=== PATIENT | female | born 1950 | race Caucasian/White ===

== ENCOUNTER → 2020-06-16 08:09 | Outpatient (CLI) | payer MEDICARE, BC ==
--- NOTE | ~2020-06-16 | ST ---
PATIENT:NIKOLE MCCARTHY MEDICAL RECORD: [id number] SEX: F LOCATION:[facility] ORDER #: ADMISSION DATE: 06/16/20 AGE OF PATIENT: 69 REFERRING PHYSICIAN: INTERPRETING PHYSICIAN: BRADEN BEASLEY MD DATE OF SERVICE: 06/16/2020 NUCLEAR STRESS TEST GATED: Normal. Normal wall motion. Normal EF, calculated EF 70%. SPECT IMAGING: SPECT imaging was performed. 1. Short axis view shows uptake along the anterior wall, lateral wall and inferior wall. 2. Horizontal axis: Horizontal axis confirms good uptake along the anterior wall and inferior wall. 3. Vertical axis: Vertical axis shows good uptake along the lateral wall and septum. FINAL IMPRESSION: 1. Gated, normal wall motion, normal ejection fraction 70%. 2. Normal SPECT imaging. FINAL RECOMMENDATIONS: This patient with known history of coronary artery disease, this scan is low risk for any ongoing ischemia. LV function remains normal. Continue medical management. Risk factor modification is recommended. TRANSINT:[id number] Voice Confirmation ID: [id number] DOCUMENT ID: [id number] BRADEN BEASLEY MD CC: [id number] DICTATION DATE: 06/17/20 1008 SEISMOGRAPH OBSERVER: 06/18/20 0635 DEP CLI 06/16/[address] [address]
== END | disposition home or self-care (01) ==
LOC: D.HCCARDIO 08:09
PROVIDERS: ATTEND Internal Medicine Interventional Cardiology
DX: I20.9 Angina pectoris, unspecified (principal)

== ENCOUNTER 2020-07-19 11:03 | Day surgery (SDC) | payer MEDICARE, BC ==
[~2020-07-19] VITALS: Ht 160 cm; Wt 67.4 kg
--- NOTE | ~2020-07-19 | HEMODYNAMI ---
PATIENT:NIKOLE MCCARTHY MEDICAL RECORD: [id number] : 52 LOCATION:[facility] ADMISSION DATE: 07/19/20 Generatedon:113:37 Patient name: NIKOLE MCCARTHY Patient #: [id number] SSN: [id number] : 1950 Date of study: 07/19/2020 Page: Of Hemodynamic Procedure Report Patient Data Patient Demographics Procedure consent was obtained First Name: NIKOLE Gender: Female Last Name: FABIO : 1950 Patient #: [id number] Age: 69 year(s) Race: SSN: [id number] Additional ID: [id number] Contact details Address: [address] [place] [address] State: [place] City: [place] Zip code: [address] Admission Admission Data Admission Date: 07/19/2020 Admission Time: 11:03 Arrival Date: 07/19/2020 Arrival Time: 13:00 Admit Source: Other Insurance Payor: Medicare [facility] #: [id number] Height (in.): 62.99 BSA: 1.7 (m2) Height (cm.): 160 BMI: 26.17 (kg/m2) Weight (lbs.): 147.71 Weight (kg.): 67 Procedure Procedure Types Cath Procedure Diagnostic Procedure PPM/ICD PPM Dual Implant Procedure Description Procedure Date Procedure Date: 07/19/2020 Procedure Start Time: 13:34 Procedure Staff Name Function Oc Gaming MD Performing Physician Tj Duong MD Assisting physician Erin Richardson RT Monitor Karina Sandoval RT Scrub Gianni Grande RN Nurse Earl Garcia RN Nurse Procedure Data Cath Procedure Fluoroscopy Diagnostic fluoroscopy Total fluoroscopy Time: 1.5 time: 1.5 min min Diagnostic fluoroscopy Total fluoroscopy dose: dose: 40.64 mGy 40.64 mGy Estimated blood loss: 5 ml Procedure Complications No complications Procedure Medications Medication Administration Route Dosage 0.9% NaCl I.V. 25 ml/hr Oxygen etCO2 Nasal cannula 2 l/min Ancef (1Gm/50ml NS) I.V.P.B 1 g Ancef Irrigation Topical 1 g (1gm/500ml NS) Refer to Anesthesia Notes for Sedation Medications Oxygen 8 l/min Hemodynamics Rest BSA: 1.7 (m2) O2 Consumption: Estimated: 141.29 (ml/min) O2 Consumption indexed: Estimated:83.11 (ml/min/m) Heart Rate: 45 (bpm) Snapshots Pre Cath Intra NCS Post Cath Vital Signs Time Heart Resp SPO2 etCO2 NIBP (mmHg) Rhythm Pain Sedation Rate (ipm) (%) (mmHg) Status Level (bpm) 12:41:47 44 21 97 185/108(154) SB 0 (11) 10(A) , No pain 12:46:09 44 38 96 183/106(152) SB 0 (11) 10(A) , No pain 12:50:33 46 17 98 183/91(153) SB 0 (11) 10(A) , No pain 12:54:53 45 18 99 29.7 188/123(154) SB 0 (11) 10(A) , No pain 13:00:19 45 11 99 29.6 194/100(159) SB 0 (11) 10(A) , No pain 13:04:51 46 13 100 28.1 199/74(167) SB 0 (11) 10(A) , No pain 13:07:27 43 18 98 0 174/70(141) SB 0 (11) 10(A) , No pain 13:09:53 46 24 96 20 160/71(137) SB 0 (11) 9(A) , No pain 13:12:12 49 8 91 33.4 157/74(124) SB 0 (11) 9(A) , No pain 13:14:33 51 9 92 0 148/65(118) SB 0 (11) 9(A) , No pain 13:16:50 70 8 94 32.6 133/60(109) Paced 0 (11) 9(A) , No pain 13:19:01 45 26 94 0 129/64(103) SB 0 (11) 9(A) , No pain 13:21:08 79 8 98 31.9 120/76(104) Paced 0 (11) 9(A) , No pain 13:24:09 80 8 98 35.6 114/63(95) Paced 0 (11) 9(A) , No pain 13:26:16 59 8 98 37.1 107/59(87) Paced 0 (11) 9(A) , No pain 13:28:20 70 8 98 36.4 104/61(88) Paced 0 (11) 9(A) , No pain 13:30:23 70 7 98 35.6 104/60(86) Paced 0 (11) 9(A) , No pain 13:32:26 72 6 98 31.9 107/58(80) Paced 0 (11) 9(A) , No pain Medications Time Medication Route Dose Verified Delivered Reason Notes Effec tiveness by by 12:21:47 0.9% NaCl I.V. 25 Oc Earl used for ml/hr St Deuce Garcia RN procedure 12:22:01 Oxygen etCO2 2 Oc Earl used for Nasal l/min St Deuce Garcia RN procedure cannula 12:42:05 Ancef I.V.P.B 1 g Oc Earl used for (1Gm/50ml St Deuce Garcia RN procedure NS) 12:42:21 Ancef Topical 1 g Oc Christopherian used for Irrigation St Deuce Duong MD procedure (1gm/500ml NS) 13:03:54 Refer to Oc Spencer Anesthesia St Deuce Duong MD Notes for MD Sedation Medications 13:05:22 Oxygen NC- 8 Oc Christopherian used for requested simple l/min St Deuce Duong MD procedure per mask anesthesia Procedure Log Time Note 12:01:23 Diagnostic Cath Status : Elective 12:02:04 Informed consent obtained and on chart 12:04:26 Arrival Date: 07/19/2020 1:00:00 PM 12:04:56 Admit Source: Other 12:04:59 Insurance Payor : Medicare 12:06:29 Patient Height : 62.99 inches 12:06:31 Patient Weight : 147.71 lbs 12:06:43 Procedure Status PPM/ Gen Change/ Lead Revision/ Temp. 12:06:46 Time tracking: Regular hours (M-F 7:00 - 5:00) 12:07:06 Plan of Care:Hemodynamics will remain stable., Cardiac rhythm will remain stable., Comfort level will be maintained., Respiratory function will remain adequate., Patient/ family verbilizes understanding of procedure., Procedure tolerated without complication., Recovers from procedure without complications.. 12:21:47 0.9% NaCl 25 ml/hr I.V. was administered by Earl Garcia RN; used for procedure; Verbal order read back and verified. 12:22:01 Oxygen 2 l/min etCO2 Nasal cannula was administered by Earl Garcia RN; used for procedure; Verbal order read back and verified. 12:22:40 Gianni Grande RN sent for patient. Start room use. 12:32:51 Patient received from Pre/Post Procedure Room to CCL 3 Alert and oriented. Tansferred to table in Supine position. 12:32:53 Warm blankets applied, and reinaldo hugger turned on for patient comfort. 12:32:53 Correct patient and procedure confirmed by team. 12:32:54 ECG and BP/O2 sat monitors applied to patient. 12:39:26 Vital chart was started 12:40:02 Baseline sample Acquired. 12:40:11 Rhythm: sinus bradycardia 12:40:13 Full Disclosure recording started 12:40:17 H&P Date Dictated: 07/19/2020 Within 30 days and on chart., H&P Addendum completed by physician on day of procedure. (MUST COMPLETE FOR ALL OUTPATIENTS). 12:41:15 Pre-procedure instructions explained to patient. 12:41:16 Pre-op teaching completed and patient verbalized understanding. 12:41:45 Family in patients room. 12:41:47 Patient NPO since Midnight. 12:41:53 Is the patient allergic to Iodine/contrast media? No. 12:41:56 Was the patient premedicated? No 12:41:58 Is patient on blood thinner?No 12:41:59 Patient diabetic? Yes. 12:42:00 If diabetic: On Metformin? No 12:42:03 Previous problem with sedation/anesthesia? No ? 12:42:05 Ancef (1Gm/50ml NS) 1 g I.V.P.B was administered by Earl Garcia RN; used for procedure; Verbal order read back and verified. 12:42:07 Snore? Yes 12:42:08 Sleep apnea? No 12:42:09 Deviated septum? No 12:42:10 Opens mouth fully? Yes 12:42:11 Sticks out tongue? Yes 12:42:18 Airway obstruction? No ? 12:42:21 Ancef Irrigation (1gm/500ml NS) 1 g Topical was administered by Tj Duong MD; used for procedure; Verbal order read back and verified. 12:42:21 Dentures? No ? 12:42:29 Pre procedure: right dorsailis pedis pulse 2+ Normal; easily identifiable; not easily obliterated 12:42:31 Pre procedure: left dorsailis pedis pulse 2+ Normal; easily identifiable; not easily obliterated 12:42:34 Patient pain scale 0/10 ?. 12:42:58 IV patent on arrival in left forearm with 0.9% NaCl at [facility]. 12:43:21 Lab results completed and on chart. 12:43:35 Left chest area was prepped with chlora-prep and draped in sterile fashion 12:43:36 Alarms reviewed by R. N. 12:43:37 Sharps counted by scrub and verified by R.N. 12:47:58 Use device set [id number] PPM 12:48:00 2-0 Ticron Multipack ([id number]) opened to sterile field. 12:48:00 3-0 Vicryl Single Pack [id number] opened to sterile field. 12:48:01 5-0 Monocryl PS2 [id number] opened to sterile field. 12:48:01 Cautery Tip Top Closer opened to sterile field. 12:48:02 Cautery Pushbutton Pencil opened to sterile field. 12:48:03 Mepilex Dressing (447565) opened to sterile field. 12:48:05 Immobilizer Sling Medium opened to sterile field. 12:48:10 Medtronic 4074-52 PPM Lead opened to sterile field. 12:49:10 Medtronic 4574-45 PPM Lead opened to sterile field. 12:50:[address] Generator [id number] opened to sterile field. 12:54:15 Physician arrived 12:54:15 --------ALL STOP TIME OUT------ 12:54:16 Final Timeout: patient, procedure, and site verified with staff and physician. All members of the team are in agreement. 12:54:19 Left chest site verified by team. 12:54:31 Fire Safety Assessment: A--An alcohol-based skin anteseptic being used preoperatively., E--There are other possible contributors. 12:54:33 Physical assessment completed. ASA score P 2 - A patient with mild systemic disease as per Oc Gaming MD. 12:54:39 Paul Shoemaker her and present to monitor anesthesia 12:54:40 Sedation plan: TIVA Medication:Propofol 12:58:49 Medtronic medical sales representative Tobin Castillo present for procedure. 12:58:58 Pre sharps counted by scrub and verified by RN: Sutures: 7; Sponges: 5; Stick needles: 2; Skin needles: 2; Blade: 1; Cautery: 1 12:59:04 Grounding pad site Left thigh. 12:59:05 Grounding pad site free from injury. 13:03:54 Refer to Anesthesia Notes for Sedation Medications was administered by Tj Duong MD; ; Verbal order read back and verified. 13:04:41 Procedure started. 13:05:22 Oxygen 8 l/min NC- simple mask was administered by Tj Duong MD; used for procedure; requested per anesthesia Verbal order read back and verified. 13:05:28 Incision made to left subclavicular area. 13:13:15 Generator pocket made/opened. 13:13:19 Left subclavian vein accessed with 7Fr Peel Away Sheath. 13:13:31 Left subclavian vein accessed with 7Fr Peel Away Sheath. 13:13:33 Ventricular lead inserted and advanced. 13:13:35 Atrial lead inserted and advanced. 13:16:04 Ventricular lead positioned. 13:18:37 Atrial lead positioned. 13:18:41 Peel-a-way sheath was split and removed. 13:18:42 Peel-a-way sheath was split and removed. 13:18:47 Ventricular lead attachment was completed with 2-0 ticron. 13:19:52 Atrial lead attachment was completed with 2-0 ticron. 13:20:41 PPM Dual was attached to lead(s) and inserted into pocket. 13:20:46 Generator was sutured in place with 2-0 ticron. 13:22:11 Device pocket was irrigated with Ancef. 13:23:25 Subcutaneous closure was completed with 3-0 vicryl plus. 13:25:11 Skin closure was completed with 5-0 monocryl. 13:27:23 Lt Chest incision was dressed with Mepilex dressing. 13:27:36 Parameters-- Generator: Mode: DDDR. Lower Rate: 60bpm. Upper Rate: 120bpm. 13:29:02 Parameters--Ventricular P/R Wave: 5.0mV. Current: 0.8mA; Threshold: 0.7V; Impedence: 1280OHMS. 13:29:21 Parameters--Atrial P/R Wave: 1.0mV. Current: 0.8mA; Threshold: 0.5V; Impedence: 634OHMS. 13:30:13 Procedure ended.(Physican Out) 13:32:50 Fluoroscopy time 01.50 minutes. 13:32:55 Fluoroscopy dose: 40.64 mGy 13:32:55 Flurop Dose total: 40.64 13:33:03 Dose Area Product 576.70 mGy/cm. 13:33:07 Sharps counted by scrub and verified by R.N. 13:33:08 Insertion/operative site no bleeding no hematoma. 13:33:12 Post procedure rhythm: paced 13:33:15 Estimated blood loss: 5 ml 13:33:17 Post procedure instruction explained to patient.Patient verbalizes understanding. 13:33:17 Patient needs reinforcement of post procedure teaching. 13:33:24 Procedure and supply charges have been captured, reviewed, submitted and are correct. 13:33:30 Procedure Complication : No complications 13:33:34 Vital chart was stopped 13:33:36 Operative report dictated upon procedure completion. 13:33:37 See physician's report for complete and final results. 13:33:44 Report given to Pre/Post Procedure Room. 13:33:50 Patient transfered to Pre/Post Procedure Room with Stretcher. 13:34:03 End room use (Document Last) Device Usage Item Name Manufacture Quantity Catalog Hospital Part Current Minima l Lot# / Number Charge Number Stock Stock Serial# Code 2-0 Ticron Ethicon 7 [id number] 5 Multipack ([id number]) 3-0 Vicryl Ethicon 1 [id number] 726092 451953 [id number] 5 Single Pack [id number] 5-0 Monocryl Ethicon 1 [id number] 862427 542285 391861 5 PS2 Y495G Cautery Tip Microtek 1 [id number] 432470 895573 256072 5 [employer] Cautery Microtek 1 [id number] 482516 11080 302351 5 Pushbutton [employer] Inc[employer] Pencil Mepilex Cardinal 1 929324 217068 999342 061276 5 Dressing Health (236265) Immobilizer Cardinal 1 [id number] 985710 944970 717077 5 Sling Medium Health Medtronic Medtronic 1 4074-52 955141 380302 191919 5 [id number] 4074-52 PPM EXP Lead 12-24-2021 Medtronic Medtronic 1 4574-45 996238 943905 422034 5 [id number] 4574-45 PPM EXP Lead 03-02-2022 Medtronic Medtronic 1 [id number] 059428 [id number] 935995 [id number] EXP Generator 11-12-2021 [id number] Signature Audit Hensley Stage Time Signature Unsigned Intra-Procedure 07/19/2020 Erin Richardson 1:35:32 PM RT(R) Intra-Procedure 07/19/2020 Earl Garcia RN 1:36:51 PM Intra-Procedure 07/19/2020 Oc Urbano 1:37:20 PM De[id number] [place] [address]
[2020-07-19 11:56] VITALS: BP 152/57; Ht 160 cm; Wt 67.4 kg
[2020-07-19 12:00] LABS: HEMATOCRIT 37.3 % (36.0-48.0); HEMOGLOBIN 12.9 g/dL (12-16); MCH 33.1 pg (26.0-34.0); MCHC 34.6 g/dL (31.0-37.0); MCV 95.6 fL (80.0-100.0); MEAN PLATELET VOLUME 9.6 fL (7.4-10.4); RBC 3.9 10x6/uL (4.00-5.40); RDW 12.9 % (11.5-14.5); WBC 6.6 10x3/uL (4.8-10.8)
[2020-07-19 12:09] LABS: ANION GAP 15.8 mmol/L (8-16); CALCIUM 8.7 mg/dL (8.5-10.1); CARBON DIOXIDE 23.9 mmol/L (21.0-32.0); POTASSIUM - SERUM 4.7 mmol/L (3.5-5.1)
[2020-07-19] MEDS ORDERED: NORVASC5 MG PO (12:10)
[2020-07-19] MEDS ORDERED: LOTENSIN 10 MG10 MG PO (12:11)
[2020-07-19] MEDS ORDERED: OS-CAL500 MG PO (12:12)
[2020-07-19] MEDS ORDERED: KLONOPIN0.5 MG PO (12:12)
[2020-07-19] MEDS ORDERED: PLAVIX75 MG PO (12:13)
[2020-07-19] MEDS ORDERED: COLACE100 MG PO (12:13)
[2020-07-19] MEDS ORDERED: COMBIGAN OPHT DR5 ML EACH EYE (12:14)
[2020-07-19] MEDS ORDERED: CYANOCOBAL1000 MCG/4 SC (12:15)
[2020-07-19] MEDS ORDERED: PEPCID40 MG PO (12:16)
[2020-07-19] MEDS ORDERED: FLUOROMETHOLONE5 ML LEFT EYE (12:16)
[2020-07-19] MEDS ORDERED: NEURONTIN600 MG PO (12:17)
[2020-07-19] MEDS ORDERED: IPRAT-ALBUT 0.5-3 ML INH (12:19)
[2020-07-19 12:20] LABS: APTT 29.7 SECONDS (22.8-39.4); INR 1.15 (0.85-1.17); PROTIME 13.6 SECONDS (11.6-15.0)
[2020-07-19] MEDS ORDERED: ISOSORBIDE MONO60 M1 PO (12:24)
[2020-07-19] MEDS ORDERED: LEVO-T100 MCG PO (12:26)
[2020-07-19] MEDS ORDERED: FUROSEMIDE20 MG PO (12:26)
[2020-07-19] MEDS ORDERED: CLARITIN 10 MG10 MG PO (12:27)
[2020-07-19] MEDS ORDERED: MECLIZINE HCL25 MG PO (12:28)
[2020-07-19] MEDS ORDERED: METHOCARBAMOL500 MG PO (12:28)
[2020-07-19] MEDS ORDERED: REGLAN5 MG PO (12:31)
[2020-07-19] MEDS ORDERED: SINGULAIR10 MG PO (12:32)
[2020-07-19] MEDS ORDERED: NASONEX NASAL S17 GM NS (12:32)
[2020-07-19] MEDS ORDERED: HYDROCODON-ACE1 EAC7 PO (12:34)
[2020-07-19] MEDS ORDERED: OMEPRAZOLE40 MG PO (12:35)
[2020-07-19] MEDS ORDERED: PREDNISOLONE 110 ML EACH EYE (12:36)
[2020-07-19] MEDS ORDERED: REMERON15 MG PO (12:37)
[2020-07-19] MEDS ORDERED: CRESTOR20 MG PO (12:37)
[2020-07-19] MEDS ORDERED: CARAFATE1 G PO (12:37)
[2020-07-19] MEDS ORDERED: TOPAMAX50 MG PO (12:39)
[2020-07-19] MEDS ORDERED: ZANAFLEX4 MG PO (12:39)
[2020-07-19] MEDS ORDERED: VOLTAREN100 GM TOPICAL (12:42)
[2020-07-19] MEDS ORDERED: ZYRTEC10 MG PO (12:42)
--- NOTE | 2020-07-19 13:45 | NUR ---
PT REC'D TO CATH RECOVERY ROOM 5 VIA [employer]. MONITORS ESTAB. SISTER AT BS. SEE LAMP SHADE MAKER FLOWSHEETS. ALARMS ON AND C/L IN REACH.
--- NOTE | 2020-07-19 14:00 | NUR ---
VSS. PT VISITING WITH SISTER. CM - A PACED AT 70, NO ECTOPY NOTED. L PPM SITE C/D/I, NO REDNESS OR DRAINAGE NOTED. PT DENIES PAIN OR NEEDS. ALARMS ON AND C/L IN REACH.
--- NOTE | 2020-07-19 14:30 | NUR ---
PT ATE ALL OF SANDWICH. DENIES PAIN OR NEEDS. L CHEST PPM SITE C/D/I, NO REDNESS, SWELLING OR DRAINAGE NOTED. VSS. CM - AV PACED, NO ECTOPY NOTED. ALARMS ON AND C/L IN REACH.
--- NOTE | 2020-07-19 14:50 | NUR ---
PCXR REPORT WNL. VSS. CM - AV PACED. PT ASSISTED UP TO BR WITHOUT DIFFICULTY.
--- NOTE | 2020-07-19 15:00 | NUR ---
PT BACK TO ROOM. PIV D/C'D INTACT, DSG APPLIED. ASSISTED WITH DRESSING BY SISTER.
--- NOTE | 2020-07-19 15:09 | NUR ---
ALL DISCHARGE INSTRUCTIONS REVIEWED WITH PT AND HER SISTER, INCLUDING RESTRICTIONS, MEDS AND F/U APPT. BOTH VERBALIZE UNDERSTANDING.
--- NOTE | 2020-07-19 15:16 | NUR ---
PT D/C'D VIA OWN PERSONAL WC WITH ALL PAPERWORK AND BELONGINGS TO PRIVATE VEHICLE.
--- NOTE | 2020-07-20 13:38 | OP ---
PATIENT NAME: NIKOLE MCCARTHY MEDICAL RECORD: [id number] :52 LOCATION:[facility] ADMISSION DATE: SURGEON: BRADEN BEASLEY MD DATE OF OPERATION: 07/19/2020 PROCEDURE: Lead portion of permanent pacemaker placement. SURGEON: Tj Duong MD INDICATION: Sick sinus syndrome with paused. DESCRIPTION OF PROCEDURE: After the left subclavian was cannulated via modified Seldinger technique via Dr. Duong first with fluoroscopic guidance, I placed the RV lead in the RV apex without any difficulty. After adequate R waves and threshold were obtained, again under fluoroscopic guidance, placed right atrial lead in right atrial appendage without difficulty. After adequate P waves and threshold were obtained, the leads were attached to the appropriate poles of the generator. Pocket was closed via Dr. Duong. IMPRESSION: Successful lead portion of permanent pacemaker placement. ESTIMATED BLOOD LOSS: Minimal. COMPLICATIONS: None. DISPOSITION: To the floor, stable. TRANSINT:[id number] Voice Confirmation ID: [id number] DOCUMENT ID: [id number] BRADEN BEASLEY MD at 1338 CC: [id number] DICTATION DATE: 07/19/20 1324 HALAL BUTCHER: 07/19/20 1556 [facility] 07/19/20 [facility] [address] [place] [address]
--- NOTE | 2020-07-21 14:18 | OP ---
PATIENT NAME: NIKOLE MCCARTHY MEDICAL RECORD: [id number] :52 LOCATION:D.CAT ADMISSION DATE: SURGEON: TITO UMANA MD DATE OF OPERATION: 07/19/2020 PREOPERATIVE DIAGNOSIS: Sick sinus syndrome. POSTOPERATIVE DIAGNOSIS: Sick sinus syndrome. PROCEDURES: 1. Left subclavian vein dual lead pacemaker placement. 2. Fluoroscopic interpretation. SURGEON: Tito Umana MD COSURGEON: Oc Perkins MD REPORT OF OPERATION: The patient's left chest was prepped and draped in sterile fashion. A transverse incision was made on the left superior lateral chest and the subcutaneous pouch was made over the pectoral fascia. Murtaugh were used to cannulate the left subclavian vein. Guidewires were advanced with ease. Fluoroscopy was used to note that the wires were in good position in the venous system. Dilator trocar devices were placed over the wires and the wires and dilators were removed. The leads were advanced through the trocars until they rested in the superior vena cava. At this point, Dr. Perkins positioned the leads appropriately in the atrium and ventricle. Once the leads were noted to be in good position, then these were sutured into place with 2-0 Ti-Cron. The leads were affixed to the pacemaker, which was placed into the subcutaneous pouch and sutured to the pectoral fascia with a single interrupted 2-0 Ti-Cron. We irrigated out the wound bed with antibiotic solution. The subcutaneous tissues were reapproximated with interrupted 3-0 Vicryl and the skin was closed with running subcutaneous 5-0 Monocryl. COMPLICATIONS: None. CONDITION: Stable. ANESTHESIA: TIVA. BLOOD LOSS: Minimal. TRANSINT:[id number] Voice Confirmation ID: [id number] DOCUMENT ID: [id number] TITO UMANA MD at 1418 CC: [id number] DICTATION DATE: 07/19/20 1329 [employer]ARM[employer]: 07/19/[address] [facility] 07/19/20 [address] [place] [address]
== END 2020-07-19 15:16 | disposition home or self-care (01) ==
LOC: D.CATH 11:03
PROVIDERS: ATTEND Internal Medicine Interventional Cardiology
DX: I49.5 Sick sinus syndrome (principal); I25.10 Atherosclerotic heart disease of native coronary artery without angina pectoris; E11.9 Type 2 diabetes mellitus without complications; I10 Essential (primary) hypertension; E78.5 Hyperlipidemia, unspecified